=== PATIENT | male | born 2000 | race Caucasian/White ===

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

== ENCOUNTER 2019-03-27 13:09 | Emergency (ER) | payer OTHER, BC ==
[~2019-03-27] VITALS: Ht 185.4 cm; Wt 71.7 kg
[~2019-03-27 13:09] MED LIST changes: +AMOX1TAB61 PO
[2019-03-27 13:43] VITALS: BP 133/79
[2019-03-27] MEDS ORDERED: HYDROcodone/APAP 5/325MG 1 TAB TABLET PO ONE (14:00)
[2019-03-27] MEDS ORDERED: ORPHENADRINE CITRATE 60 MG/2 ML VIAL. IM ONE (14:00)
[2019-03-27] MEDS ORDERED: KETOROLAC 60 MG/2 ML VIAL. IM ONE (14:00)
--- NOTE | 2019-03-27 14:06 | RAD ---
EXAM: Right ankle, 3 views. HISTORY: Pain and swelling. COMPARISON: None. FINDINGS: 3 views of the right ankle are obtained. There is no fracture, dislocation or subluxation. There is soft tissue edema. No osteochondral lesion is seen. IMPRESSION: No acute osseous finding. Soft tissue edema. Electronically signed by: Teresa Minor MD (03/27/2019 2:03 PM) [email or web address]
[2019-03-27] MEDS ORDERED: CYCL10TA2 PO (14:27)
[2019-03-27] MEDS ORDERED: NAPR-514 PO (14:27)
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
== END 2019-03-27 14:56 | disposition home or self-care (01) ==
LOC: ER 13:09
DX: S40.812A Abrasion of left upper arm, initial encounter (principal); R22.41 Localized swelling, mass and lump, right lower limb; M54.5 Low back pain; M25.571 Pain in right ankle and joints of right foot; J45.909 Unspecified asthma, uncomplicated; V43.52XA Car driver injured in collision with other type car in traffic accident, initial encounter; Y92.488 Other paved roadways as the place of occurrence of the external cause; Y93.89 Activity, other specified; Y99.8 Other external cause status
CPT/HCPCS: 29515; 73610; 96372; 99284; J1885; J2360

== ENCOUNTER → 2019-12-12 | Outpatient (CLI) | payer BC ==
[~2019-12-12] MED LIST changes: +CYCL10TA2 PO; +NAPR-514 PO
--- NOTE | 2019-12-12 15:38 | KCIC ---
Examination: MRI of the right knee without contrast History question right knee pain, instability COMPARISON: 06/25/2017 TECHNIQUE: Multiplanar, multisequence MR imaging of the right knee was performed without contrast. FINDINGS: Reconstructed anterior cruciate ligament appears intact. The posterior cruciate ligament appears intact. The medial meniscus, lateral meniscus appears intact. The medial collateral ligament is intact. Lateral collateral ligamentous complex including the fibular collateral ligament, biceps femoris tendon, popliteus tendon appear intact. Small knee joint effusion identified. The medial retinaculum, lateral retinaculum appears intact. The extensor mechanism appears intact. Small knee joint effusion. There is minimal increased T2 signal identified in the Hoffa's fat pad just in the suprapatellar region. Postsurgical changes identified in the Hoffa's fat pad in the infrapatellar region. Mild thickened appearance of the infrapatellar tendon. IMPRESSION: 1. Intact reconstructed anterior cruciate ligament. 2. Mild increased T2 signal identified in the suprapatellar fat pad could be secondary to impingement. 2. Small knee joint effusion. Electronically signed by: Antonio Schmidt MD (12/12/2019 3:36 PM) [id number]
== END | disposition home or self-care (01) ==
LOC: KCIC MRI 14:29
PROVIDERS: ATTEND Orthopaedic Surgery
DX: M25.461 Effusion, right knee (principal); M79.4 Hypertrophy of (infrapatellar) fat pad; Z98.890 Other specified postprocedural states
CPT/HCPCS: 73721

== ENCOUNTER → 2020-01-21 | Outpatient (CLI) | payer BC ==
--- NOTE | 2020-01-21 10:48 | KCIC ---
Examination: MRI of the right knee without contrast HISTORY: History of right knee joint effusion, new injury since last MRI COMPARISON: 12/15/2019 TECHNIQUE: Multiplanar, multisequence MR imaging of the right knee without contrast FINDINGS: There is a full-thickness tear of the reconstructed anterior cruciate ligament in its midportion. The posterior cruciate ligament appears intact. Mild increased signal identified in the posterior horn of the medial meniscus likely tear of the medial meniscus. There is a multiloculated cystic structure measuring 1.6 cm identified extending laterally and posteriorly from the posterior root of the medial meniscus likely meniscal cyst. The lateral meniscus appears intact. The medial collateral ligament appears intact. Mild increased signal identified about the medial collateral ligament likely sprain. The lateral collateral ligamentous complex appearing the fibular collateral ligament, biceps femoris tendon, popliteus and appears intact. The extensor mechanism appears intact. A large knee joint effusion is identified. There is moderate T2 signal/or trabecular edema identified in the lateral femoral condyle with mild depressed impaction fracture of the subchondral portion of the lateral femoral condyle and moderate trabecular edema identified in the posterior aspect of the medial and lateral tibial plateau likely secondary to contusions. Mild increased T2 signal/edema identified in the proximal aspect of the fibula. The cartilage in the medial, lateral compartment femoral compartments grossly appears intact. Mild edema identified in the Hoffa's fat pad. IMPRESSION: 1. Full-thickness tear of the reconstructed anterior cruciate ligament. 2. Moderate trabecular edema with mild depressed impaction fracture of the subchondral portion of the lateral femoral condyle and moderate trabecular edema identified in the posterior aspect of the medial and lateral tibial plateau likely secondary to contusions. Mild increased T2 signal/edema identified in the proximal aspect of the fibula likely contusion. 3.. Tear of the posterior horn the medial meniscus with a multiloculated cystic structure measuring 1.6 cm identified extending laterally and posteriorly from the posterior root of the medial meniscus likely meniscal cyst. 4. Large knee joint effusion. 5. Grade 1 MCL sprain. Electronically signed by: Antonio Schmidt MD (01/21/2020 10:45 AM) [id number]
== END | disposition home or self-care (01) ==
LOC: KCIC MRI 08:09
PROVIDERS: ATTEND Orthopaedic Surgery
DX: S83.411A Sprain of medial collateral ligament of right knee, initial encounter (principal); S83.241A Other tear of medial meniscus, current injury, right knee, initial encounter; M25.461 Effusion, right knee; X58.XXXA Exposure to other specified factors, initial encounter; Y93.89 Activity, other specified; Y92.89 Other specified places as the place of occurrence of the external cause; Y99.8 Other external cause status
CPT/HCPCS: 73721

== ENCOUNTER 2020-02-03 08:14 | Observation (INO) | payer BC ==
--- NOTE | 2020-02-02 13:00 | PDOC1 ---
History and Physical Date of Admission Date of Admission 02/03/2020 Identification/Chief Complaint Chief Complaint Right knee instability Source Source: Chart review, Patient History of Present Illness History of Present Illness Chace is a 19-year-old who had ACL reconstruction by me in 2016. The knee had been doing well until a reinjury, jumping over a bonfire on 01/09/2020. He had a significant giving way episode, and a new MRI shows torn ACL graft as well as medial meniscus tear. He is here for elective ACL revision reconstruction, and medial meniscus repair versus meniscectomy. Past Surgical History Past Surgical History ACL reconstruction 2016 Family History Family History: No Significant Social History Smoke: Quit ALCOHOL: none Current Medications Current Medications Active Scripts Active Naproxen 500 Mg Tablet 1 Tab PO BID PRN 10 Days Cyclobenzaprine Hcl 10 Mg Tablet 1 Tab PO TID PRN 10 Days Augmentin 875-125 Tablet (Amoxicillin/Potassium Clav) 1 Each Tablet 1 Tab PO BID 7 Days Gentamicin Sulfate 0.3% Ophth Soln (Gentamicin Sulfate) 5 Ml Drops 2 Drop EACHEYE QID [place] 5-325 Tablet (Acetaminophen/Hydrocodone Bitart) 1 Each Tablet 1-2 Tab PO Q4-6HRS Reported Dulera 100 Mcg/5 Mcg Inhaler (Mometasone/Formoterol) 13 Gm Hfa.aer.ad 2 Puff IH BID Proair Hfa Inhaler (Albuterol Sulfate) 8.5 Gm Hfa.aer.ad 1 Puff INH PRN Q6HRS PRN Allergies Allergies: Coded Allergies: No Known Drug Allergies (Unverified , 01/30/20) Physical Exam General: Alert, Oriented X3 HEENT: Atraumatic Lungs: Normal air movement Heart: RRR Abdomen: Soft Extremities: Other (The RIGHT knee shows normal alignment, no masses. He does have a massive effusion, probably an hemarthrosis. There is extreme guarding and difficulty on exam although a medial Margy's test seems painful. Range of motion is 20-70 degrees, without crepitus but pain at the extremes of motion. He is stable to varus and valgus stress within the limits of the exam. Sp seems abnormal although there is lots of guarding on exam as well. Muscle s trength is normal (5/5) for quadriceps and hamstrings, and muscle tone is normal. The skin is normal with no scars, rashes, lesions or ulcers. Light touch sensation is intact. No edema and no varicosities. Dorsalis pedis pulse is intact and capillary refill is normal. ) Images Images Reports reviewed, Images independently reviewed of the right knee MRI results of the right knee at [facility] on 01/21/20 Examination: MRI of the right knee without contrast HISTORY: History of right knee joint effusion, new injury since last MRI COMPARISON: 12/15/2019 TECHNIQUE: Multiplanar, multisequence MR imaging of the right knee without contrast FINDINGS: There is a full-thickness tear of the reconstructed anterior cruciate ligament in its midportion. The posterior cruciate ligament appears intact. Mild increased signal identified in the posterior horn of the medial meniscus likely tear of the medial meniscus. There is a multiloculated cystic structure measuring 1.6 cm identified extending laterally and posteriorly from the posterior root of the medial meniscus likely meniscal cyst. The lateral meniscus appears intact. The medial collateral ligament appears intact. Mild increased signal identified about the medial collateral ligament likely sprain. The lateral collateral ligamentous complex appearing the fibular collateral ligament, biceps femoris tendon, popliteus and appears intact. The extensor mechanism appears intact. A large knee joint effusion is identified. There is moderate T2 signal/or trabecular edema identified in the lateral femoral condyle with mild depressed impaction fracture of the subchondral portion of the lateral femoral condyle and moderate trabecular edema identified in the posterior aspect of the medial and lateral tibial plateau likely secondary to contusions. Mild increased T2 signal/edema identified in the proximal aspect of the fibula. The cartilage in the medial, lateral compartment femoral compartments grossly appears intact. Mild edema identified in the Hoffa's fat pad. IMPRESSION: 1. Full-thickness tear of the reconstructed anterior cruciate ligament. 2. Moderate trabecular edema with mild depressed impaction fracture of the subchondral portion of the lateral femoral condyle and moderate trabecular edema identified in the posterior aspect of the medial and lateral tibial plateau likely secondary to contusions. Mild increased T2 signal/edema identified in the proximal aspect of the fibula likely contusion. 3.. Tear of the posterior horn the medial meniscus with a multiloculated cystic structure measuring 1.6 cm identified extending laterally and posteriorly from the posterior root of the medial meniscus likely meniscal cyst. 4. Large knee joint effusion. 5. Grade 1 MCL sprain. Electronically signed by: Antonio Schmidt MD (01/21/2020 10:45 AM) [id number] DICTATED and SIGNED BY: ANTONIO SCHMIDT MD DATE: 01/21/20 1045. VTE Prophylaxis Ordered VTE Prophylaxis Devices: Yes VTE Pharmacological Prophylaxi: Yes Assessment/Plan Assessment/Plan He has torn the ACL graft and now has a medial meniscus tear. The meniscus tear is possibly repairable at his age, but appears complex on MRI series 5 image 7, and might be irreparable. I discussed revision ACL reconstruction with Chace and with his mom. We talked about graft choices previously, and my recommendation is to use both of his hamstrings as autograft, and use a third hamstring allograft to improve the diameter and strength of the revision ACL reconstruction. Hopefully that would be "Chace-Proof". They stated understanding of the risks benefits and alternatives and desire to proceed. Surgery would be right knee arthroscopy, revision ACL reconstruction using hamstrings autograft and hamstring allograft, and medial meniscus repair versus meniscectomy. Justifications for Admission Other Justification YASMEEN RODRÍGUEZ MD Feb 02, 2020 13:00
[2020-02-03] VITALS (8 sets, daily range): BP systolic 111–143; BP diastolic 62–93
[~2020-02-03] VITALS: Ht 180.3 cm; Wt 95.7 kg
[~2020-02-03 08:14] MED LIST changes: +BUPIVACAINE-EPI 0.25%-1:200000 MPF 30 ML VIAL. INJ ONE; +HYDROmorphone 2 MG/ML VIAL IV PRN; +IV RINGERS,LACTATED 1000ML 1,000 ML IV SCH; +ONDANSETRON PF 4 MG/2 ML VIAL. IV PRN; +PROCHLORPERAZINE 10 MG/2 ML VIAL. IV PRN; +fentaNYL PF VIAL 100 MCG/2 ML VIAL IV PRN
[2020-02-03] MEDS ORDERED: fentaNYL PF VIAL 100 MCG/2 ML VIAL ONE ×5 (08:22→15:27)
[2020-02-03] MEDS ORDERED: ROCURONIUM 50 MG/5 ML VIAL. ONE (08:22)
[2020-02-03] MEDS ORDERED: PROPOFOL 10 MG/ML (20ML) VIAL. IV ONE (08:22)
[2020-02-03] MEDS ORDERED: LIDOCAINE 2% PF 5 ML VIAL. ONE (08:22)
[2020-02-03] MEDS ORDERED: OMEP20CA16 PO (08:37)
[2020-02-03] MEDS ORDERED: TRAM50TA PO (08:37)
[2020-02-03] MEDS ORDERED: EPINEPHrine VIAL 30 MG/30 ML VIAL ONE (11:19)
[2020-02-03] MEDS ORDERED: DEXAMETHASONE SOD PHOS 4 MG/ML VIAL ONE (11:58)
[2020-02-03] MEDS ORDERED: BUPIVACAINE-EPI 0.25%-1:200000 MPF 30 ML VIAL. INJ ONE (12:00)
[2020-02-03] MEDS ORDERED: ONDANSETRON PF 4 MG/2 ML VIAL. ONE (12:57)
[2020-02-03] MEDS ORDERED: KETOROLAC 30 MG/ML VIAL. ONE (14:03)
[2020-02-03] MEDS: fentaNYL PF VIAL 100 MCG/2 ML VIAL IV PRN ×6 (14:25→15:40)
[2020-02-03] MEDS: MORPHINE SULFATE 2 MG/ML VIAL. IV PRN ×2 (14:36→14:46)
[2020-02-03] MEDS ORDERED: MORPHINE SULFATE 2 MG/ML VIAL. ONE (14:36)
[2020-02-03] MEDS ORDERED: oxyCODONE/APAP 5/325 1 TAB TABLET ONE (15:20)
--- NOTE | 2020-02-03 15:27 | PDOC4 ---
Operative Note Operative Note Date of Procedure: February 03, 2020 Pre-Op Diagnosis: 1. Rupture of anterior cruciate ligament of right knee, initial encounter S83.511A 2. Complex tear of medial meniscus, current injury, right knee, initial encounter S83.231A Post-Op Diagnosis: 1. Rupture of anterior cruciate ligament of right knee, initial encounter S83.511A 2. Bucket-handle tear of medial meniscus of right knee as current injury, initial encounter S83.211A 3. Complex tear of lateral meniscus, current injury, right knee, initial encounter S83.271A Procedure: 1. right knee arthroscopy with anterior cruciate ligament (revision) reconstruction using autograft semitendinosus and gracilis plus allograft semi- tendinosis creating a six stranded hamstring graft CPT 05251-26 2. right knee arthroscopy, knee, surgical; with meniscectomy (medial AND lateral, including meniscal shaving) including debridement/shaving of articular cartilage (chondroplasty) CPT 19228 Surgeon: Yasmeen Tineo MD Engine Hostler: Marciano AHUJA Anesthesia: General EBL: 50 mL Specimens Obtained: none Complications: none Drains: none Tourniquet: 86 minutes at 300 mm Hg Findings: Revision procedure which complicates the fixation. Because of the revision procedure I used both allograft and autograft which required longer graft preparation time. Larger tunnels than normal were used because of the revision, and tunnel positioning was more complex due to the existence of prior bone tunnels. Indications for Procedure: The patient is a 19 year-old with a recent knee injury. He has a history of previous ACL reconstruction in 2016, which was done with bonepatellar tendonbone autograft. The recent injury in 2019 was when he was jumping over a bonfire and landed awkwardly, injuring the knee. MRI shows a high-grade ACL graft rupture, and a medial meniscus tear. The MRI shows ACL tear, and possible medial meniscus tear. The patient and I discussed the options for treatment, including revision anterior cruciate ligament reconstruction. We discussed several graft choices. Allograft alone has a fairly high failure rate. Autograft heals better, and we discussed options such as ipsilateral hamstrings, contralateral bone tendon bone, quadriceps tendon graft, and other choices. My recommendation was use his own hamstrings including the semi- tendinosis and gracilis, and augment that for a larger stronger graft with a semi-tendinosis allograft. This would give a large diameter graft which would be difficult to rerupture, but the advantages of having his own tissue should allow rapid healing and less risk of rupture. We discussed meniscus repair if possible, or meniscectomy if repair was impossible. We discussed the potential risks of ACL reconstruction, such as infection, DVT, stiffness, rupture of the graft, or other potential surgical or anesthetic complications. We discussed additional risks of using an allograft. We discussed the long-term risks of osteoarthritis, especially with ACL injury, and with a possibly nonrepairable meniscus tear. All of his questions about surgery were answered and he desired to proceed. Written consent was obtained. He is 19 years old and can sign his own consent but I discussed the surgery in detail with his mother as well. Procedure in Detail: The patient was identified in the preoperative holding area. The correct right knee was marked by me. The patient was taken to the operating room where general anesthetic was used. The patient was positioned supine on the operating table, with a tourniquet on the upper thigh. A lateral brace and heel bump were used such that the knee could stay flexed 90 on the table, without an additional esl instructional assistant. Preoperative antibiotics were given intravenously. A timeout procedure was performed. Local anesthetic with epine phrine was injected into the knee joint, and into the anteromedial tibia area. The limb was prepared with sterile ChloraPrep solution from the tourniquet to the tip of the toes, then sterile drapes are applied. An impervious stockinette was used over the lower limb. Autologous hamstring graft was harvested first. A 4 cm longitudinal incision was made over the Pez anserine bursa. Sharp dissection was used and Bovie electrocautery was used for hemostasis. The sartorius fascia was elevated. The semi-tendinosis gracilis tendons were easily identified and stripped up the thigh with a SigFig tendon harvester. The tendons were detached from the upper tibia and taken to the back table where they were further prepared by my esl instructional assistant Mr. May. We also thawed a 6 mm diameter semi-tendinosis allograft in saline. I had Mr. May whipstitch all 6 free ends with #2 max braid suture. Each of the 3 tendon graft was folded over a single #2 FiberWire suture, and a marker was used to luda a spot 30 mm from the folded ends. The Graftmaster was used, to tension the graft. An 0 Vicryl suture was used to whipstitch the folded ends from the tip of the folded ends until the 30 mm luda. A graft sizer was used, and this would fit snugly through an 11 mm sizer, and not through at 10.5 mm sizer. The graft was kept moistened and pretensioned until implantation. I proceeded with the arthroscopy. An Esmarch bandage was used to exsanguinate the limb, and the tourniquet was inflated to 300 mmHg. Lateral and medial knee arthroscopy portals were established. 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 The medial joint line shows normal articular surfaces, the cartilage remains normal. There is a complex medial meniscus tear with some bucket-handle configuration but the bucket-handle section is thin, has degenerative fibers without any bleeding, and it is apparently in the entire whitewhite zone. Reducing the bucket-handle portion caused the meniscus to fragment, and it is not repairable. There is a horizontal complex tear in the posterior horn of the medial meniscus remnant. I performed a partial medial meniscectomy with basket forceps and motorized shaver back to a smooth stable base. The intercondylar notch showed a high-grade ACL graft tear with no remaining intact fibers. The lateral joint line showed 2 separate lateral meniscus tears. At the posterior root attachment, there is a tear seen typically with ACL injury, which is an oblique complex tear at the internal edge as it approaches the root, and I did partial meniscectomy with basket forceps and the motorized shaver back to a smooth stable base. The second tear is at the junction of the middle and anterior one thirds, and is an internal surface complex tear in the whitewhite zone, with a partial radial component and small oblique components. Partial meniscectomy was performed in this location with basket forceps and the motorized shaver back to a smooth stable base. The very anterior horn of the lateral meniscus appears normal. The previous ACL graft was removed with a shaver. The previous femoral tunnel was noted. A notchplasty was performed with a curette, the shaver, and a motorized bur. The [id number] position was able to be identified after that. A drill guide was placed in the ACL tibial footprint, using landmarks such as 7 mm in front of the PCL, the trailing edge of the anterolateral portal the lateral meniscus, and the medial tibial spine. The guide pin was placed, and then an 11 mm fluted reamer was used to create the tibial tunnel. The entry to the joint was smoothed with a rasp. Excess soft tissue was removed with a shaver from both ends of the tunnel. A plug was placed. The [id number]-sum-[id number] position was again identified. A Tana awl was used to spike the femur slightly lower than the 10:30 position, approximate 5 mm in front of the oiio-xgc-lux position. The knee was now kept in maximal hyperflexion by my esl instructional assistant. A 4.5 mm drill bit was used to create a charter pilot hole, doing all of the work for the femoral tunnel through the medial portal. A guide pin was placed in the charter pilot hole, and then an 11 mm fluted reamer was used to create the femoral socket 30 mm in depth. Excess bone was removed with a shaver. The U-shaped guide for the Mitek RigidFix cross pin fixation system was used. Small incisions were made on the lateral thigh. Cannula and trocar device was through the U-guide, to place the trocars such that the cross pins would ultimately across the femoral tunnel. The trocar position, crossing the femoral tunnel, was confirmed arthroscopically after the guide had been removed. A Beath pin was now used to pull the tails of a Prolene suture out the skin of the lateral thigh. My esl instructional assistant grasped the tails of the Prolene suture, and I grasped the loop of the Prolene, using a grasper, through the tibial tunnel. The graft was now advanced through the tibial tunnel, into the femoral socket, where it seated nicely at 30 mm of depth. The Mitek RigidFix cross pins were deployed, with excellent fixation of the graft. The graft could not be dislodged, with maximum manual tension distally. The graft was physiologically isometric with slight tensioning of the graft at full extension. The distal fixation was with a Mitek Bio-Intrafix 8-10 mm x 30 mm tapered screw, and the large Bio-Intrafix tibial sheath. The graft was stable to probing with no motion. Excellent graft isometry was achieved and there was no graft impingement throughout the range of motion. Knee exam showed normal Sp and anterior drawer test. The tourniquet was released. Copious saline irrigation was used and bone debris was removed. The subcutaneous tissues were closed with 2-0 Vicryl by my esl instructional assistant. Mr. May closed all of the skin incisions with #3-0 Nylon suture using simple and horizontal mattress patterns. Additional local anesthetic with epinephrine was injected, 30 mLs of 0.25% Marcaine with epinephrine. Sterile dressings were applied. Needle and sponge counts were correct. There were no apparent co mplications. Marciano applied a brace in the operating room. YASMEEN TINEO MD Feb 03, 2020 15:27
[2020-02-03] MEDS ORDERED: DEXTROSE 50% 25 GM / 50ML DISP.SYRIN. IV PRN (15:30)
[2020-02-03] MEDS ORDERED: PROCHLORPERAZINE 5 MG TABLET. PO PRN (15:30)
[2020-02-03] MEDS ORDERED: CALCIUM CARBONATE 500 MG TAB.CHEW PO PRN (15:30)
[2020-02-03] MEDS ORDERED: METOCLOPRAMIDE HCL 10 MG/2 ML VIAL. IVP PRN (15:30)
[2020-02-03] MEDS ORDERED: 0.9 % SODIUM CHLORIDE 10 ML DISP.SYRIN. IV PRN (15:30)
[2020-02-03] MEDS ORDERED: fentaNYL PF VIAL 100 MCG/2 ML VIAL IVP PRN (15:30)
[2020-02-03] MEDS ORDERED: MORPHINE SULFATE 2 MG/ML VIAL. IVP PRN (15:30)
[2020-02-03] MEDS ORDERED: oxyCODONE/APAP 5/325 1 TAB TABLET PO PRN ×2 (15:30→16:00)
[2020-02-03] MEDS ORDERED: diphenhydrAMINE 50 MG/ML VIAL IVP PRN (15:30)
[2020-02-03] MEDS ORDERED: ZOLPIDEM 5 MG TABLET. PO PRN (15:30)
[2020-02-03] MEDS: oxyCODONE/APAP 5/325 1 TAB TABLET PO PRN ×2 (15:32→19:25)
--- NOTE | 2020-02-03 15:46 | RAD ---
Examination: KNEE RIGHT 2V History: Reason: POST OP KNEE IN OR, INCORRECT COUNTS. / Spl. Instructions: EXTRA NEEDLES WERE NOT COUNTED AT BEGINNING OF CASE. / History: Comparison/Correlation: None Findings: A total of 4 images of the right knee were provided. Postoperative findings of ACL reconstruction noted. No radiopaque foreign bodies at the level of the knee identified. There is a curvilinear density at the mid to distal lateral right thigh posteriorly. Soft tissue gas about the knee region consistent with postoperative status noted. Impression: No radiopaque foreign body at the level of the right knee. Curvilinear density is present at the right posterolateral thigh soft tissues of concern for a foreign body. Electronically signed by: Aidan Hoskins MD (02/03/2020 3:43 PM) [id number]
--- NOTE | 2020-02-03 16:35 | NUR ---
Arrived to unit by cart from PACU. Alert and oriented x's 4. VS stable. Right leg elevated on pillow with ice pack. Right leg dressing d/i in a Don Alexandra immobilizer brace. Pedal pulses + bilaterally, able to wiggle toes easily and warm to touch. IVF's intact and infusing. Oriented to room and controls. Side rails up x's 2 with call light in reach. Family at bed side. Cont. monitor.
[2020-02-03] MEDS ORDERED: IV NORMAL SALINE 1000ML BAG 1,000 ML IV SCH (17:00)
[2020-02-03] MEDS: KETOROLAC 15 MG/ML VIAL. IVP SCH ×2 (17:09→23:58)
[2020-02-03] MEDS: ONDANSETRON PF 4 MG/2 ML VIAL. IVP SCH (18:00)
[2020-02-03] MEDS: ONDANSETRON ODT 4 MG TAB.RAPDIS. PO SCH (18:00)
[2020-02-03] MEDS ORDERED: ASPIRIN ENTERIC COATED 325 MG TABLET.DR. PO SCH (21:00)
[2020-02-04 03:05] VITALS: BP 111/64
[2020-02-04] MEDS: oxyCODONE/APAP 5/325 1 TAB TABLET PO PRN ×3 (05:05→12:45)
[2020-02-04] MEDS: ONDANSETRON PF 4 MG/2 ML VIAL. IVP SCH ×3 (05:55→12:00)
[2020-02-04] MEDS: KETOROLAC 15 MG/ML VIAL. IVP SCH (05:58)
[2020-02-04] MEDS: ONDANSETRON ODT 4 MG TAB.RAPDIS. PO SCH ×3 (06:00→12:00)
[2020-02-04] MEDS ORDERED: MAGNESIUM HYDROXIDE 2,400 MG/30 ML ORAL.SUSP. PO PRN (06:00)
[2020-02-04 06:17] VITALS: BP 114/72
--- NOTE | 2020-02-04 07:53 | PDOC ---
ORTHO PROGRESS NOTES DATE: 02/04/20 TIME: 07:46 Subjective Patient states that the pain is not bad this morning. Post-op Day: 1 Procedure Right knee revision ACL and partial meniscectomy. Vitals Vital Signs Date Time Temp Pulse Resp B/P (MAP) Pulse Ox O2 Delivery O2 Flow Rate FiO2 02/04/20 06:17 98.1 14 114/72 (86) 96 Room Air 98.1 02/04/20 03:05 97 02/03/20 14:30 10.0 Notes Awake and alert. Assessment and Plan Postop day 1 status post right knee revision ACL with partial meniscectomy. Motor and sensation intact distally at the right lower extremity. Dressing dry and intact. Patient will call to have his crutches brought in today. Home after PT and follow-up in clinic with Dr. Tineo and 10 to 14 days call for appointment. SERAFIN ROBERTSON APRN Feb 04, 2020 07:52
--- NOTE | 2020-02-04 07:56 | DISCH ---
DISCHARGE INSTRUCTIONS Condition on Discharge Condition on Discharge: Stable Activity After Discharge Activity Instructions for Disc: Activity as tolerated Bathing Instructions: No Tub Bath until see Lifting Instructions after Dis: No heavy lifting, No pulling or pushing Exercise Instruction after Dis: Exercise per therapy Driving Instructions after Dis: Do not drive Weight Bearing Status after Di: Non weight bearing Diet after Discharge Diet after Discharge: Clear Liquid, Regular Contacting the DRLorena after DC Call your doctor for: If your condition worsens (call [facility] orthopedics) SERAFIN ROBERTSON APRN Feb 04, 2020 07:56
[2020-02-04] MEDS ORDERED: SENNOSIDES/DOCUSATE 8.6/50MG TABLET. PO SCH (09:00)
[2020-02-04] MEDS ORDERED: MULTIVITAMIN with MINERAL TABLET. PO SCH (09:00)
[2020-02-04] MEDS ORDERED: ONDANSETRON ODT 4 MG TAB.RAPDIS. PO PRN (12:00)
[2020-02-04] MEDS ORDERED: ONDANSETRON PF 4 MG/2 ML VIAL. IVP PRN (12:00)
[2020-02-04 13:15] VITALS: BP 124/69
--- NOTE | 2020-02-04 13:46 | NUR ---
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
[2020-02-04] MEDS ORDERED: BISACODYL 10 MG SUPP.RECT. PR PRN (16:00)
== END 2020-02-04 13:54 | disposition home or self-care (01) ==
LOC: SURG 08:14 → 4 SOUTHEST 15:34
PROVIDERS: ADMIT Orthopaedic Surgery; ATTEND Orthopaedic Surgery
DX: S83.211A Bucket-handle tear of medial meniscus, current injury, right knee, initial encounter (principal); S83.231A Complex tear of medial meniscus, current injury, right knee, initial encounter; S83.271A Complex tear of lateral meniscus, current injury, right knee, initial encounter; S83.511A Sprain of anterior cruciate ligament of right knee, initial encounter; S83.419A Sprain of medial collateral ligament of unspecified knee, initial encounter; M22.40 Chondromalacia patellae, unspecified knee; X58.XXXA Exposure to other specified factors, initial encounter; Y93.39 Activity, other involving climbing, rappelling and jumping off; Y92.89 Other specified places as the place of occurrence of the external cause; Y99.8 Other external cause status
CPT/HCPCS: 29880; 29888; 73560; 96361; 96365; 96366; 96375; 96376; 97110; 97161; A7015; C1713; C1776; G0378; G0379; J0171; J0690; J1100; J1885; J2270; J2405; J2704; J3010; J3490; J7030; J7120

== ENCOUNTER 2020-07-21 18:35 | Emergency (ER) | payer BC ==
[~2020-07-21] VITALS: Ht 185.4 cm; Wt 86.3 kg
[~2020-07-21 18:35] MED LIST changes: -BUPIVACAINE-EPI 0.25%-1:200000 MPF 30 ML VIAL. INJ ONE; -HYDROmorphone 2 MG/ML VIAL IV PRN; -IV RINGERS,LACTATED 1000ML 1,000 ML IV SCH; +OMEP20CA16 PO; -ONDANSETRON PF 4 MG/2 ML VIAL. IV PRN; -PROCHLORPERAZINE 10 MG/2 ML VIAL. IV PRN; +TRAM50TA PO; -fentaNYL PF VIAL 100 MCG/2 ML VIAL IV PRN
[2020-07-21] MEDS ORDERED: fentaNYL PF VIAL 100 MCG/2 ML VIAL ONE (18:54)
[2020-07-21 19:00] LABS: BASO # 0.1 x10^3/uL (0.0-0.2); BASO % 1 % (0-3); EOS # 0.1 x10^3/uL (0.0-0.7); EOS % 1 % (0-3); HEMATOCRIT 46.6 % (39.0-53.0); HEMOGLOBIN 16.1 g/dL (13.0-17.5); LYMPH # 3.3 x10^3/uL (1.0-4.8); LYMPH % 40 % (24-48); MEAN CORPUSCULAR HEMOGLOBIN 30 pg (25-35); MEAN CORPUSCULAR HGB CONC 35 g/dL (31-37); MEAN CORPUSCULAR VOLUME 86 fL (79-100); MONO # 0.8 x10^3/uL (0.0-1.1); MONO % 10 % (0-9); NEUT % 48 % (31-73); PLATELET COUNT 346 x10^3/uL (140-400); WHITE BLOOD COUNT 8.3 x10^3/uL (4.0-11.0)
[2020-07-21] MEDS ORDERED: IV NORMAL SALINE 1000ML BAG 1,000 ML IV ONE ×2 (19:00)
[2020-07-21] MEDS ORDERED: fentaNYL PF VIAL 100 MCG/2 ML VIAL IVP ONE ×4 (19:00→21:30)
[2020-07-21 19:11] LABS: PROTHROMBIN TIME PATIENT 13.1 SEC (11.7-14.0)
[2020-07-21 19:17] LABS: CALCIUM 8.6 mg/dL (8.5-10.1); CREATININE 1.4 mg/dL (0.7-1.3); GFR 64.6; POTASSIUM 3.5 mmol/L (3.5-5.1)
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
[2020-07-21 19:29] LABS: ALBUMIN/GLOBULIN RATIO 1.1 (1.0-1.7); TOTAL BILIRUBIN 1.1 mg/dL (0.2-1.0); TOTAL PROTEIN 7.8 g/dL (6.4-8.2)
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
[2020-07-21 21:05] VITALS: BP 109/61
== END 2020-07-21 21:15 | disposition short-term general hospital (02) ==
LOC: ER 18:35
DX: S62.613B Displaced fracture of proximal phalanx of left middle finger, initial encounter for open fracture (principal); K21.9 Gastro-esophageal reflux disease without esophagitis; F17.200 Nicotine dependence, unspecified, uncomplicated; Z98.890 Other specified postprocedural states; W34.09XA Accidental discharge from other specified firearms, initial encounter; Y93.89 Activity, other specified; Y92.89 Other specified places as the place of occurrence of the external cause; Y99.8 Other external cause status
CPT/HCPCS: 36415; 73130; 80053; 83605; 85025; 85610; 85730; 86850; 86900; 86901; 96361; 96365; 96375; 96376; 99285; G0480; J0690; J3010; J7030